=== PATIENT | female | born 2000 | race African-American/Black ===

== ENCOUNTER 2019-12-30 08:40 | Emergency (ER) | payer BC ==
[~2019-12-30] VITALS: Ht 154.9 cm; Wt 59.0 kg
[2019-12-30] MEDS ORDERED: FIORINAL 50-321 EACH PO (09:27)
[2019-12-30 09:44] VITALS: BP 115/85
== END 2019-12-30 09:44 | disposition home or self-care (01) ==
LOC: ER 08:40
DX: G89.29 Other chronic pain (principal); R51.9 Headache, unspecified